=== PATIENT | male | born 1965 | race Caucasian/White ===

== ENCOUNTER 2022-04-10 01:46 | Outpatient (CLI) | payer BC, SELFPAY ==
[2022-04-08 08:47] VITALS: BMI 30.2
--- NOTE | 2022-04-08 09:26 | PC.NURSE ---
Pre Radiology instructions Report to the Outpatient Waiting Room, entrance under the green pavilion located off [facility], at time 0900 on date 04/10/22. Procedure Time: 1100. YOU MAY BE MONITORED AT HOSPITAL FOR UP TO 4 HOURS AFTER YOUR PROCEDURE. One visitor will be allowed to accompany the patient into the hospital. The visitor will be instructed to remain with patient at all times or leave the building due to restrictions. We will allow the visitor to come back to the postoperative area when patient is ready. NO children visitors allowed at this time. You and your visitor will be asked to self-screen and do not enter if you have any COVID symptoms. A mask is required within the hospital. Patients are to have no food or drink 6 hours prior to procedure time Driving will be restricted after the procedure, you must have a person to drive you home. Labs will be drawn in preop area and once reviewed, you will be taken to radiology area for procedure. When the procedure is completed, you will be taken to outpatient where you will be monitored for several hours. You may have one visitor in this area. Other than holding anti-coagulants, patient may take other medication(s) as scheduled. Prior to your appointment date patients are instructed to hold anti-coagulants after discussing with ordering provider to stop. If unable to discontinue anti-coagulants please notify radiologist. No aspirin or warfarin (Coumadin) for 7 days prior to the procedure. No clopidogrel (Plavix), ticagrelor (Brilinta), prasugrel (Effient) or dabigatran (Pradaxa) for 5 days prior to the procedure. No rivaroxaban (Xarelto), apixaban (Eliquis), dipyridamole (Aggrenox or Persantine) or cilostazol (Pletal) for 2 days prior to the procedure. Medications to discontinue per physician: NONE Date to take last dose: N/A Please leave all valuables, including medications, at home the day of procedure. The hospital will not accept responsibility for valuables. Wear comfortable, loose fitting clothing. Follow any additional instructions given to you from ordering provider. Telephone instructions given to PT Marcelo VELASQUEZ and asked if any additional questions and then verbalized understanding. Patient advised to call scheduling provider office or registration scheduling [phone] if any additional questions.
[2022-04-10] VITALS (10 sets, daily range): BP systolic 120–147; BP diastolic 72–89; PULSE 47–52; RESP 14–16; TEMP 36.5; O2SAT 97–100; BMI 29.6
--- NOTE | ~2022-04-10 | XR_ITS ---
EXAMINATION: XR chest 1V DATE: 04/10/2022 12:32 INDICATION: Status post right lung percutaneous biopsy TECHNIQUE: frontal view of the chest was obtained. COMPARISON: None FINDINGS: Very small right apical pneumothorax. Lungs are clear with no focal airspace opacities, pulmonary robert ma or pleural effusion. The cardiomediastinal silhouette is normal. Mild to moderate degenerative ske letal changes in the spine and at both shoulders. IMPRESSION: 1. Very small right apical pneumothorax. Reviewed, dictated and finalized at location A.
--- NOTE | ~2022-04-10 | XR_ITS ---
EXAMINATION: XR chest 1V portable DATE: 04/10/2022 13:32 INDICATION: One hour post percutaneous right lung biopsy TECHNIQUE: frontal view of the chest was obtained. COMPARISON: Chest radiograph dated 04/10/2022 at 12:29 PM FINDINGS: The previously seen tiny right pneumothorax has resolved. Lungs are now clear with no focal airspace opacity, pulmonary edema, pleural effusion or pneumothorax. The cardiomediastinal silhouette is christine l. IMPRESSION: 1. Resolution of prior tiny iatrogenic right pneumothorax post right lung percutaneous biopsy. Reviewed, dictated and finalized at location A. IMPRESSION: 1. Resolution of prior tiny iatrogenic right pneumothorax post right lung percu taneous biopsy.
--- NOTE | ~2022-04-10 | CT_ITS ---
EXAMINATION: CT biopsy lung w/imaging DATE: 04/10/2022 12:44 INDICATION: Solitary right lower lobe pulmonary nodule. TECHNIQUE: The procedure including the risks and benefits was discussed with the patient. Risks discu ssed included infection, approximately 1/20 risk of symptomatic hemorrhage beyond mild hemoptysis, ap proximately 1/3 risk of pneumothorax, and approximately 1/10 risk of pneumothorax severe enough to wa rrant chest tube placement. The patient understood the risks and agreed to proceed. The patient was p laced prone. The skin overlying the posterior inferior right hemithorax was prepped and draped in st erile fashion. Anesthetic was administered with 1% lidocaine subcutaneously. A 19 gauge outer needl e was advanced under CT guidance to the lesion of interest. A 20 gauge core biopsy needle was then us ed to obtain 3 core biopsy specimens. The needle was removed and the entry site was cleaned and dress ed. There were no immediate complications. The dose-length product was 429.64 mGy-cm. FINDINGS: CT images demonstrate the outer needle tip adjacent to a 13 mm nodule at the azygos esophag eal recess of the right lower lobe. IMPRESSION: 1. Successful CT-guided biopsy of a 1.3 cm right lower lobe nodule. Reviewed, dictated and finalized at location A.
--- NOTE | ~2022-04-10 | XR_ITS ---
EXAMINATION: XR chest 1V portable DATE: 04/10/2022 15:27 INDICATION: 3 hours post percutaneous right lung biopsy TECHNIQUE: frontal view of the chest was obtained. COMPARISON: Chest radiograph from earlier on 04/10/2022 FINDINGS: Minimal atelectasis/scarring at the left costophrenic angle. No other airspace opacities, pulmonary e arlene, pleural effusion or pneumothorax. The cardiomediastinal silhouette is normal. IMPRESSION: 1. Mild lingular atelectasis/scarring at the left costophrenic angle. No pneumothorax or other acute cardiopulmonary disease. Reviewed, dictated and finalized at location A. IMPRESSION: 1. Mild lingular atelectasis/scarring at the left costophrenic angle. No pneumo thorax or other acute cardiopulmonary disease.
[2022-04-10 09:42] LABS: Mean Platelet Volume 11.5 fl (7.4-10.4); Platelet Count Result 145 k/mm3 (150-375)
[2022-04-10 09:59] LABS: Prothrombin Time 13.1 Seconds (11.1-14.7)
--- NOTE | 2022-04-10 15:56 | SUR.PHASEII ---
pt is ok to be discharged now per dr mcgraw
== END 2022-04-10 16:00 | disposition home or self-care (01) ==
PROVIDERS: PCP Internal Medicine; Referring Provider Internal Medicine Pulmonary Disease; Visit Provider Radiology Diagnostic Radiology
PROC: BB24ZZZ Computerized Tomography (CT Scan) of Bilateral Lungs (ICD-10-PCS; CPT 32408; principal; 2022-04-10 11:00)
DX: R91.1 Solitary pulmonary nodule (principal); R91.8 Other nonspecific abnormal finding of lung field
CPT/HCPCS: 32408; 36415; 71045; 85049; 85610; 88305; 88312

== ENCOUNTER 2025-05-20 07:02 | Outpatient (CLI) | payer BC, SELFPAY ==
--- OUTSIDE RECORDS SUMMARY | 2025-05-20 07:05 | XMS_ITS | Data Portability ---
Author Organization [place] - [facility] [employer], Main Office Address [address] [place] [address] Care Team Providers Care Security Chief Museum Name Role Phone VAUGHN LINDSAY Primary Care Provider VAUGHN LINDSAY Referring Provider Assessment Encounter Date Assessment Date Assessment LastModified by Organization Details LastModified Time 02/10/2023 02/10/2023 12/10/2021: A1C 6.0 PSA 0.87 TSH: WNL, FT4: 0.96 CMP Gluc 122 LIPIDS: TG 181 CBC: WNL 06/28/2022: A1C 6.0 [email or web address] Not available 02/10/2023 11:39:31 Plan of Treatment Reminders Order Date Submit Date Provider Last Modified By Organization Details Last Modified Time Details Appointments None recorded. Lab PSA, serum or plasma 2022 023 [email or web address] Not available 3 15:36:11 vitamin D, 25-hydroxy, total, serum 2022 023 [email or web address] Not available 3 15:35:53 lipid panel, serum 2022 023 ZION Not available 3 12:54:51 CMP, serum or plasma 2022 023 ZION Not available 3 12:55:02 CBC w/ auto diff 2022 023 ZION Not available 3 12:33:13 TSH, serum or plasma 2022 023 ZION Not available 3 13:21:07 T4, free, serum 2022 023 ZION Not available 3 13:12:[address] referral 2022 023 [email or web address] Yousuf Covarrubias MD, [address] [place], [address], 3 10:32:32 Procedures None recorded. Surgeries biopsy, lung, CT guided (SURG) 2022 022 MIGRATION .[id number] [address] [place] [address] (Imaging), [address] [place] [address] [address], [place], [address], 3 22:44:16 Imaging None recorded. Medication Orders None recorded. Patient TargetsNo targets recorded. Patient InstructionsNo instructions recorded. 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 0 Diabe susana Scree rl Crite carson: <5.7% Consi stent with absen ce of diabe susana 5.7-6 .4% Consi stent with incre ased risk for diabe susana (pred iabet es) >OR=6 .5% Consi stent with diabe susana REFER ENCE: Diabe susana Care 2016, 39(Saleh ppl.1 ):s13 -s22 Not Available [facility] (Lab) [address] [place], [address], 12/10/2021 21:32:25 12/11/19 22 12/10/2021 PSA SCREE N PSA medicare screen 0.87 NG/mL 0.00-4 .00 Not Available [facility] (Lab) [address] [place], [address], 12/10/2021 13:42:14 12/11/19 22 12/10/2021 TSH thyroid-stim ulating hormone 1.820 uIU/m L 0.465- 4.680 Not Available [facility] (Lab) [address] [place], [address], 12/10/2021 13:42:12 12/11/19 22 12/10/2021 VITAM IN D 25-HY DROXY [id number] 32.4 NG/mL 30-100 Vitam in D Statu s: Defic ient: <20 ng/mL Insuf ficie nt: 20-29 ng/mL Suffi cient : 30-10 0 ng/mL Not Available [facility] (Lab) [address] [place], [address], 12/10/2021 13:19:46 12/11/19 22 12/10/2021 T4 FREE free T4 0.96 NG/dL 0.78-2 .19 Not Available [facility] (Lab) [address] [place], [address], 12/10/2021 13:19:05 12/11/19 22 12/10/2021 COMPR EHENS SHIVAM METAB OLIC PANEL sodium 138 mmol/ L 137-14 5 Not Available [facility] (Lab) [address] [place], [address], 12/10/2021 13:04:12 12/11/19 22 12/10/2021 COMPR EHENS SHIVAM METAB OLIC PANEL potassium 4.8 mmol/ L 3.5-5. 1 Not Available [facility] (Lab) [address] [place], [address], 12/10/2021 13:04:12 12/11/19 22 12/10/2021 COMPR EHENS SHIVAM METAB OLIC PANEL chloride 103 mmol/ L 98-107 Not Available [facility] (Lab) [address] [place], [address], 12/10/2021 13:04:12 12/11/19 22 12/10/2021 COMPR EHENS SHIVAM METAB OLIC PANEL carbon dioxide 29 mmol/ L 22-30 Not Available [facility] (Lab) [address] [place], [address], 12/10/2021 13:04:12 12/11/19 22 12/10/2021 COMPR EHENS SHIVAM METAB OLIC PANEL anion gap 10.8 mmol/ L 14-22 low Not Available [facility] (Lab) [address] [place], [address], 12/10/2021 13:04:12 12/11/19 22 12/10/2021 COMPR EHENS SHIVAM METAB OLIC PANEL glucose 122 mg/dL 70-99 high Not Available [facility] (Lab) [address] [place], [address], 12/10/2021 13:04:12 12/11/19 22 12/10/2021 COMPR EHENS SHIVAM METAB OLIC PANEL BUN 13 mg/dL 8-19 Not Available [facility] (Lab) [address] [place], [address], 12/10/2021 13:04:12 12/11/19 22 12/10/2021 COMPR EHENS SHIVAM METAB OLIC PANEL creatinine 0.94 mg/dL 0.66-1 .25 Not Available [facility] (Lab) [address] [place], [address], 12/10/2021 13:04:12 12/11/19 22 12/10/2021 COMPR EHENS SHIVAM METAB OLIC PANEL GFR >60 Refer ence Range : [place] ge GFR Healt hy Adult : >60 mL/mi n/1.7 3 m2 Chron ic Kidne y Disea se: 15-60 mL/mi n/1.7 3 m2 Kidne y Failu re: <15/m L/min /1.73 m2 www.n iddk. nih.g ov The MDRD study equat ion has not been valid ated in child myriam <18 years of age; pregn ant women ; the elder ly >85 years of age; or in some racia l or ethni c subgr oups, such as Hispa nics. Outsi de the valid ated yaniv eters , estim ated GFR is less accur ate, requi ring clini memo judgm ent on a case- by-ca se basis . Clini memo inter preta tion for other races and ages must be made by the clini jimmy. The MDRD study equat ion has not been valid ated for the evalu ation of serum creat inine relat ed to nutri benson l statu s or medic ation usage . For perso ns <18 years of age, a pedia tric GFR calcu lator is avail able on the [facility] websi te: https ://gay [place].kristyn white.o ena/pr ofess ional s/kdo qi/gf r_cal culat or Not Available [facility] (Lab) [address] [place], [address], 12/10/2021 13:04:12 12/11/19 22 12/10/2021 COMPR EHENS SHIVAM METAB OLIC PANEL alkaline phosphatase 69 U/L 38-126 Not Available [facility] (Lab) [address] [place], [address], 12/10/2021 13:04:12 12/11/19 22 12/10/2021 COMPR EHENS SHIVAM METAB OLIC PANEL alanine aminotransfe rase 37 U/L 0-50 Not Available [facility] (Lab) [address] [place], [address], 12/10/2021 13:04:12 12/11/19 22 12/10/2021 COMPR EHENS SHIVAM METAB OLIC PANEL aspartate aminotransfe rase 30 U/L 15-46 Not Available [facility] (Lab) [address] [place], [address], 12/10/2021 13:04:12 12/11/19 22 12/10/2021 COMPR EHENS SHIVAM METAB OLIC PANEL bilirubin, total 0.80 mg/dL 0.20-1 .30 Not Available [facility] (Lab) [address] [place], [address], 12/10/2021 13:04:12 12/11/19 22 12/10/2021 COMPR EHENS SHIVAM METAB OLIC PANEL calcium 9.4 mg/dL 8.4-10 .2 Not Available [facility] (Lab) [address] [place], [address], 12/10/2021 13:04:12 12/11/19 22 12/10/2021 COMPR EHENS SHIVAM METAB OLIC PANEL total protein 7.0 g/dL 6.3-8. 2 Not Available [facility] (Lab) [address] [place], [address], 12/10/2021 13:04:12 12/11/19 22 12/10/2021 COMPR EHENS SHIVAM METAB OLIC PANEL albumin 4.2 g/dL 3.4-5. 0 Not Available [facility] (Lab) [address] [place], [address], 12/10/2021 13:04:12 12/11/19 22 12/10/2021 COMPR EHENS SHIVAM METAB OLIC PANEL globulin 2.8 g/dL 2.6-4. 2 Not Available [facility] (Lab) [address] [place], [address], 12/10/2021 13:04:12 12/11/19 22 12/10/2021 COMPR EHENS SHIVAM METAB OLIC PANEL A/G ratio 1.5 ratio 1.0-2. 0 Not Available [facility] (Lab) [address] [place], [address], 12/10/2021 13:04:12 12/11/19 22 12/10/2021 LIPID PANEL cholesterol 120 mg/dL 140-19 9 low NIH SCOTT NSUS RECOM MENDA TION FOR SARAH STERO L: ADULT CHILD LOW RISK: <200 <170 BORDE RLINE : <200- 239 ----- HIGH RISK: >240 >200 Not Available [facility] (Lab) [address] [place], [address], 12/10/2021 13:03:39 12/11/19 22 12/10/2021 LIPID PANEL triglyceride s 181 mg/dL 0-150 high NIH SCOTT NSUS REPOR T RECOM MENDA TION FOR TRIGL YCERI CHET: ADULT CHILD LOW RISK: <150 ----- BODER LINE: 150-1 99 ----- HIGH RISK: >200 ----- Not Available [facility] (Lab) [address] [place], [address], 12/10/2021 13:03:39 12/11/19 22 12/10/2021 LIPID PANEL HDL cholesterol 43 mg/dL 40- Not Available [facility] (Lab) [address] [place], [address], 12/10/2021 13:03:39 12/11/19 22 12/10/2021 LIPID PANEL LDL cholesterol, calculated 41 mg/dL 0-130 NIH SCOTT NSUS REPOR T RECOM MENDA TIONS FOR LDL: ADULT CHILD LOW RISK <130 <110 (OPTI MAL LDL) <100 ----- BORDE RLINE : 130-1 59 ----- HIGH RISK: >160 >130 A TRIGL YCERI DE RESUL T >400 INVAL IDATE S THE CALCU LATIO N FOR LDL FRACT IONAT ION - THE LDL RESUL T WILL NOT BE REPOR MELISSA. Not Available [facility] (Lab) [address] [place], [address], 12/10/2021 13:03:39 12/11/19 22 12/10/2021 CBC/C OMPLE TE BLD COUNT W/DIF F white blood cells 6.3 x10'3 /uL 4.2-10 .8 Not Available [facility] (Lab) [address] [place], [address], 12/10/2021 13:02:33 12/11/19 22 12/10/2021 CBC/C OMPLE TE BLD COUNT W/DIF F red blood cells 4.71 x10'6 /uL 4.10-5 .80 Not Available [facility] (Lab) [address] [place], [address], 12/10/2021 13:02:33 12/11/19 22 12/10/2021 CBC/C OMPLE TE BLD COUNT W/DIF F hemoglobin 14.4 g/dL 13.2-1 7.0 Not Available [facility] (Lab) [address] [place], [address], 12/10/2021 13:02:33 12/11/19 22 12/10/2021 CBC/C OMPLE TE BLD COUNT W/DIF F hematocrit 43.6 % 39.3-5 0.0 Not Available [facility] (Lab) [address] [place], [address], 12/10/2021 13:02:33 12/11/19 22 12/10/2021 CBC/C OMPLE TE BLD COUNT W/DIF F mean red cell volume 92.6 fL 80.0-9 7.0 Not Available [facility] (Lab) [address] [place], [address], 12/10/2021 13:02:33 12/11/19 22 12/10/2021 CBC/C OMPLE TE BLD COUNT W/DIF F mean red cell hemoglobin 30.6 pg 27.0-3 3.0 Not Available [facility] (Lab) [address] [place], [address], 12/10/2021 13:02:33 12/11/19 22 12/10/2021 CBC/C OMPLE TE BLD COUNT W/DIF F mean RBC HGB concentratio n 33.0 g/dL 31.0-3 6.0 Not Available [facility] (Lab) [address] [place], [address], 12/10/2021 13:02:33 12/11/19 22 12/10/2021 CBC/C OMPLE TE BLD COUNT W/DIF F red cell distribution width 12.1 % 11.8-1 5.5 Not Available [facility] (Lab) [address] [place], [address], 12/10/2021 13:02:33 12/11/19 22 12/10/2021 CBC/C OMPLE TE BLD COUNT W/DIF F platelets 176 x10'3 /uL 150-40 0 Not Available [facility] (Lab) [address] [place], [address], 12/10/2021 13:02:33 12/11/19 22 12/10/2021 CBC/C OMPLE TE BLD COUNT W/DIF F mean platelet volume 11.4 fL 9.0-12 .4 Not Available [facility] (Lab) [address] [place], [address], 12/10/2021 13:02:33 12/11/19 22 12/10/2021 CBC/C OMPLE TE BLD COUNT W/DIF F neutrophils 44.6 % 39.0-7 2.0 Not Available [facility] (Lab) [address] [place], [address], 12/10/2021 13:02:33 12/11/19 22 12/10/2021 CBC/C OMPLE TE BLD COUNT W/DIF F lymphocytes 44.1 % 16.0-4 7.0 Not Available [facility] (Lab) [address] [place], [address], 12/10/2021 13:02:33 12/11/19 22 12/10/2021 CBC/C OMPLE TE BLD COUNT W/DIF F monocytes 8.0 % 5.0-12 .0 Not Available [facility] (Lab) [address] [place], [address], 12/10/2021 13:02:33 12/11/19 22 12/10/2021 CBC/C OMPLE TE BLD COUNT W/DIF F eosinophils 2.1 % 1.0-7. 0 Not Available [facility] (Lab) [address] [place], [address], 12/10/2021 13:02:33 12/11/19 22 12/10/2021 CBC/C OMPLE TE BLD COUNT W/DIF F basophils 1.0 % 0.0-2. 0 Not Available [facility] (Lab) [address] [place], [address], 12/10/2021 13:02:33 12/11/19 22 12/10/2021 CBC/C OMPLE TE BLD COUNT W/DIF F monocytes, absolute count 0.50 x10'3 /uL 0.29-0 .99 Not Available [facility] (Lab) [address] [place], [address], 12/10/2021 13:02:33 12/11/19 22 12/10/2021 CBC/C OMPLE TE BLD COUNT W/DIF F immature granulocytes 0.2 % 0.00-0 .50 Not Available [facility] (Lab) [address] [place], [address], 12/10/2021 13:02:33 12/11/19 22 12/10/2021 CBC/C OMPLE TE BLD COUNT W/DIF F neutrophils, absolute count 2.80 x10'3 /uL 1.5-8. 0 Not Available [facility] (Lab) [address] [place], [address], 12/10/2021 13:02:33 12/11/19 22 12/10/2021 CBC/C OMPLE TE BLD COUNT W/DIF F lymphocytes, absolute count 2.76 x10'3 /uL 1.07-3 .43 Not Available [facility] (Lab) [address] [place], [address], 12/10/2021 13:02:33 12/11/19 22 12/10/2021 CBC/C OMPLE TE BLD COUNT W/DIF F eosinophils, absolute count 0.13 x10'3 /uL 0.02-0 .53 Not Available [facility] (Lab) [address] [place], [address], 12/10/2021 13:02:33 12/11/19 22 12/10/2021 CBC/C OMPLE TE BLD COUNT W/DIF F basophils, absolute count 0.06 x10'3 /uL 0.01-0 .08 Not Available [facility] (Lab) [address] [place], [address], 12/10/2021 13:02:33 12/11/19 22 12/10/2021 CBC/C OMPLE TE BLD COUNT W/DIF F immature granulocytes ,absolute 0.01 x10'3 /uL 0.00-0 .05 Not Available [facility] (Lab) [address] [place], [address], 12/10/2021 13:02:33 12/11/19 22 12/10/2021 CBC/C OMPLE TE BLD COUNT W/DIF F nucleated red blood cells 0.0 % -0 Not Available [facility] (Lab) [address] [place], [address], 12/10/2021 13:02:33 12/11/19 22 12/10/2021 CBC/C OMPLE TE BLD COUNT W/DIF F NRBC# 0.00 x10'3 /uL Not Available [facility] (Lab) [address] [place], [address], 12/10/2021 13:02:33 06/28/20 22 07/05/2022 HEMOG LOBIN A1C HA1C 6.0 % 4.0-6. 0 Diabe susana Scree rl Crite carson: <5.7% Consi stent with absen ce of diabe susana 5.7-6 .4% Consi stent with incre ased risk for diabe susana (pred iabet es) >OR=6 .5% Consi stent with diabe susana REFER ENCE: Diabe susana Care 2016, 39(Saleh ppl.1 ):s13 -s22 Not Available [facility] (Lab) [address] [place], [address], 07/05/2022 11:19:58 06/28/20 22 06/28/2022 CBC/C OMPLE TE BLD COUNT W/DIF F white blood cells 6.9 x10'3 /uL 4.2-10 .8 Not Available [facility] (Lab) [address] [place], [address], 06/28/2022 11:21:05 06/28/20 22 06/28/2022 CBC/C OMPLE TE BLD COUNT W/DIF F red blood cells 4.95 x10'6 /uL 4.10-5 .80 Not Available [facility] (Lab) [address] [place], [address], 06/28/2022 11:21:05 06/28/20 22 06/28/2022 CBC/C OMPLE TE BLD COUNT W/DIF F hemoglobin 15.1 g/dL 13.2-1 7.0 Not Available [facility] (Lab) [address] [place], [address], 06/28/2022 11:21:05 06/28/20 22 06/28/2022 CBC/C OMPLE TE BLD COUNT W/DIF F hematocrit 45.8 % 39.3-5 0.0 Not Available [facility] (Lab) [address] [place], [address], 06/28/2022 11:21:05 06/28/20 22 06/28/2022 CBC/C OMPLE TE BLD COUNT W/DIF F mean red cell volume 92.5 fL 80.0-9 7.0 Not Available [facility] (Lab) [address] [place], [address], 06/28/2022 11:21:05 06/28/20 22 06/28/2022 CBC/C OMPLE TE BLD COUNT W/DIF F mean red cell hemoglobin 30.5 pg 27.0-3 3.0 Not Available [facility] (Lab) [address] [place], [address], 06/28/2022 11:21:05 06/28/20 22 06/28/2022 CBC/C OMPLE TE BLD COUNT W/DIF F mean RBC HGB concentratio n 33.0 g/dL 31.0-3 6.0 Not Available [facility] (Lab) [address] [place], [address], 06/28/2022 11:21:05 06/28/20 22 06/28/2022 CBC/C OMPLE TE BLD COUNT W/DIF F red cell distribution width 12.1 % 11.8-1 5.5 Not Available [facility] (Lab) [address] [place], [address], 06/28/2022 11:21:05 06/28/20 22 06/28/2022 CBC/C OMPLE TE BLD COUNT W/DIF F platelets 185 x10'3 /uL 150-40 0 Not Available [facility] (Lab) [address] [place], [address], 06/28/2022 11:21:05 06/28/20 22 06/28/2022 CBC/C OMPLE TE BLD COUNT W/DIF F mean platelet volume 10.8 fL 9.0-12 .4 Not Available [facility] (Lab) [address] [place], [address], 06/28/2022 11:21:05 06/28/20 22 06/28/2022 CBC/C OMPLE TE BLD COUNT W/DIF F neutrophils 53.2 % 39.0-7 2.0 Not Available [facility] (Lab) [address] [place], [address], 06/28/2022 11:21:05 06/28/20 22 06/28/2022 CBC/C OMPLE TE BLD COUNT W/DIF F lymphocytes 36.6 % 16.0-4 7.0 Not Available [facility] (Lab) [address] [place], [address], 06/28/2022 11:21:05 06/28/20 22 06/28/2022 CBC/C OMPLE TE BLD COUNT W/DIF F monocytes 8.0 % 5.0-12 .0 Not Available [facility] (Lab) [address] [place], [address], 06/28/2022 11:21:05 06/28/20 22 06/28/2022 CBC/C OMPLE TE BLD COUNT W/DIF F eosinophils 1.2 % 1.0-7. 0 Not Available [facility] (Lab) [address] [place], [address], 06/28/2022 11:21:05 06/28/20 22 06/28/2022 CBC/C OMPLE TE BLD COUNT W/DIF F monocytes, absolute count 0.55 x10'3 /uL 0.29-0 .99 Not Available [facility] (Lab) [address] [place], [address], 06/28/2022 11:21:05 06/28/20 22 06/28/2022 CBC/C OMPLE TE BLD COUNT W/DIF F basophils 0.7 % 0.0-2. 0 Not Available [facility] (Lab) [address] [place], [address], 06/28/2022 11:21:05 06/28/20 22 06/28/2022 CBC/C OMPLE TE BLD COUNT W/DIF F immature granulocytes 0.3 % 0.00-0 .50 Not Available [facility] (Lab) [address] [place], [address], 06/28/2022 11:21:05 06/28/20 22 06/28/2022 CBC/C OMPLE TE BLD COUNT W/DIF F neutrophils, absolute count 3.68 x10'3 /uL 1.5-8. 0 Not Available [facility] (Lab) [address] [place], [address], 06/28/2022 11:21:05 06/28/20 22 06/28/2022 CBC/C OMPLE TE BLD COUNT W/DIF F lymphocytes, absolute count 2.53 x10'3 /uL 1.07-3 .43 Not Available [facility] (Lab) [address] [place], [address], 06/28/2022 11:21:05 06/28/20 22 06/28/2022 CBC/C OMPLE TE BLD COUNT W/DIF F eosinophils, absolute count 0.08 x10'3 /uL 0.02-0 .53 Not Available [facility] (Lab) [address] [place], [address], 06/28/2022 11:21:05 06/28/20 22 06/28/2022 CBC/C OMPLE TE BLD COUNT W/DIF F basophils, absolute count 0.05 x10'3 /uL 0.01-0 .08 Not Available [facility] (Lab) [address] [place], [address], 06/28/2022 11:21:05 06/28/20 22 06/28/2022 CBC/C OMPLE TE BLD COUNT W/DIF F immature granulocytes ,absolute 0.02 x10'3 /uL 0.00-0 .05 Not Available [facility] (Lab) [address] [place], [address], 06/28/2022 11:21:05 06/28/20 22 06/28/2022 CBC/C OMPLE TE BLD COUNT W/DIF F nucleated red blood cells 0.0 % -0 Not Available [facility] (Lab) [address] [place], [address], 06/28/2022 11:21:05 06/28/20 22 06/28/2022 CBC/C OMPLE TE BLD COUNT W/DIF F NRBC# 0.00 x10'3 /uL Not Available [facility] (Lab) [address] [place], [address], 06/28/2022 11:21:05 06/28/20 22 06/28/2022 TSH thyroid-stim ulating hormone 3.010 uIU/m L 0.465- 4.680 Not Available [facility] (Lab) [address] [place], [address], 06/28/2022 11:20:10 06/28/20 22 06/28/2022 T4 FREE free T4 0.92 NG/dL 0.78-2 .19 Not Available [facility] (Lab) [address] [place], [address], 06/28/2022 11:06:23 06/28/20 22 06/28/2022 VITAM IN D 25-HY DROXY vd25oh 26.1 NG/mL 30-100 low Vitam in D Statu s: Defic ient: <20 ng/mL Insuf ficie nt: 20-29 ng/mL Suffi cient : 30-10 0 ng/mL Not Available [facility] (Lab) [address] [place], [address], 06/28/2022 11:06:00 06/28/20 22 06/28/2022 COMPR EHENS SHIVAM METAB OLIC PANEL sodium 140 mmol/ L 137-14 5 Not Available [facility] (Lab) [address] [place], [address], 06/28/2022 10:54:37 06/28/20 22 06/28/2022 COMPR EHENS SHIVAM METAB OLIC PANEL potassium 4.9 mmol/ L 3.5-5. 1 Not Available [facility] (Lab) [address] [place], [address], 06/28/2022 10:54:37 06/28/20 22 06/28/2022 COMPR EHENS SHIVAM METAB OLIC PANEL chloride 104 mmol/ L 98-107 Not Available [facility] (Lab) [address] [place], [address], 06/28/2022 10:54:37 06/28/20 22 06/28/2022 COMPR EHENS SHIVAM METAB OLIC PANEL carbon dioxide 28 mmol/ L 22-30 Not Available [facility] (Lab) [address] [place], [address], 06/28/2022 10:54:37 06/28/20 22 06/28/2022 COMPR EHENS SHIVAM METAB OLIC PANEL anion gap 12.9 mmol/ L 14-22 low Not Available [facility] (Lab) [address] [place], [address], 06/28/2022 10:54:37 06/28/20 22 06/28/2022 COMPR EHENS SHIVAM METAB OLIC PANEL glucose 128 mg/dL 70-99 high Not Available [facility] (Lab) [address] [place], [address], 06/28/2022 10:54:37 06/28/20 22 06/28/2022 COMPR EHENS SHIVAM METAB OLIC PANEL BUN 16 mg/dL 8-19 Not Available [facility] (Lab) [address] [place], [address], 06/28/2022 10:54:37 06/28/20 22 06/28/2022 COMPR EHENS SHIVAM METAB OLIC PANEL creatinine 0.98 mg/dL 0.66-1 .25 Not Available [facility] (Lab) [address] [place], [address], 06/28/2022 10:54:37 06/28/20 22 06/28/2022 COMPR EHENS SHIVAM METAB OLIC PANEL GFR >60 Refer ence Range : [place] GFR Healt hy Adult : >60 mL/mi n/1.7 3 m2 Chron ic Kidne y Disea se: 15-60 mL/mi n/1.7 3 m2 Kidne y Failu re: <15/m L/min /1.73 m2 www.n iddk. nih.g ov The MDRD study equat ion has not been valid ated in child myriam <18 years of age; pregn ant women ; the elder ly >85 years of age; or in some racia l or ethni c subgr oups, such as [facility] nics. Outsi de the valid ated yaniv eters , estim ated GFR is less accur ate, requi ring clini memo judgm ent on a case- by-ca se basis . Clini memo inter preta tion for other races and ages must be made by the clini jimmy. The MDRD study equat ion has not been valid ated for the evalu ation of serum creat inine relat ed to nutri benson l statu s or medic ation usage . For perso ns <18 years of age, a pedia tric GFR calcu lator is avail able on the NK[facility] websi te: [email or web address] :[email or web address] [email or web address] rg/pr ofess ional s/kdo qi/gf r_cal culat or Not Available [facility] (Lab) [address] [place], [address], 06/28/2022 10:54:37 06/28/20 22 06/28/2022 COMPR EHENS SHIVAM METAB OLIC PANEL alkaline phosphatase 69 U/L 38-126 Not Available [facility] (Lab) [address] [facility] [place], [address], 06/28/2022 10:54:37 06/28/20 22 06/28/2022 COMPR EHENS SHIVAM METAB OLIC PANEL alanine aminotransfe rase 57 U/L 0-50 high Not Available [facility] (Lab) [address] [facility] [place], [address], 06/28/2022 10:54:37 06/28/20 22 06/28/2022 COMPR EHENS SHIVAM METAB OLIC PANEL aspartate aminotransfe rase 37 U/L 15-46 Not Available [facility] (Lab) [address] [facility] [place], [address], 06/28/2022 10:54:37 06/28/20 22 06/28/2022 COMPR EHENS SHIVAM METAB OLIC PANEL bilirubin, total 0.50 mg/dL 0.20-1 .30 Not Available [facility] (Lab) [address] [place], [address], 06/28/2022 10:54:37 06/28/20 22 06/28/2022 COMPR EHENS SHIVAM METAB OLIC PANEL calcium 9.1 mg/dL 8.4-10 .2 Not Available [facility] (Lab) [address] [place], [address], 06/28/2022 10:54:37 06/28/20 22 06/28/2022 COMPR EHENS SHIVAM METAB OLIC PANEL total protein 6.9 g/dL 6.3-8. 2 Not Available [facility] (Lab) [address] [place], [address], 06/28/2022 10:54:37 06/28/20 22 06/28/2022 COMPR EHENS SHIVAM METAB OLIC PANEL albumin 4.3 g/dL 3.4-5. 0 Not Available [facility] (Lab) [address] [place], [address], 06/28/2022 10:54:37 06/28/20 22 06/28/2022 COMPR EHENS SHIVAM METAB OLIC PANEL globulin 2.6 g/dL 2.6-4. 2 Not Available [facility] (Lab) [address] [place], [address], 06/28/2022 10:54:37 06/28/20 22 06/28/2022 COMPR EHENS SHIVAM METAB OLIC PANEL A/G ratio 1.7 ratio 1.0-2. 0 Not Available [facility] (Lab) [address] [place], [address], 06/28/2022 10:54:37 06/28/20 22 06/28/2022 LIPID PANEL LDL cholesterol, calculated 76 mg/dL 0-130 [facility] NSUS REPOR T RECOM MENDA TIONS FOR LDL: ADULT CHILD LOW RISK <130 <110 (OPTI MAL LDL) <100 ----- BORDE RLINE : 130-1 59 ----- HIGH RISK: >160 >130 A TRIGL YCERI DE RESUL T >400 INVAL IDATE S THE CALCU LATIO N FOR LDL FRACT IONAT ION - THE LDL RESUL T WILL NOT BE REPOR MELISSA. Not Available [facility] (Lab) [address] [place], [address], 06/28/2022 10:54:21 06/28/20 22 06/28/2022 LIPID PANEL cholesterol 141 mg/dL 140-19 9 NIH SCOTT NSUS RECOM MENDA TION FOR SARAH STERO L: ADULT CHILD LOW RISK: <200 <170 BORDE RLINE : <200- 239 ----- HIGH RISK: >240 >200 Not Available [facility] (Lab) [address] [place], [address], 06/28/2022 10:54:21 06/28/20 22 06/28/2022 LIPID PANEL triglyceride s 141 mg/dL 0-150 NIH SCOTT NSUS REPOR T RECOM MENDA TION FOR TRIGL YCERI CHET: ADULT CHILD LOW RISK: <150 ----- BODER LINE: 150-1 99 ----- HIGH RISK: >200 ----- Not Available [facility] (Lab) [address] [place], [address], 06/28/2022 10:54:21 06/28/20 22 06/28/2022 LIPID PANEL HDL cholesterol 37 mg/dL 40- low Not Available [facility] (Lab) [address] [place], [address], 06/28/2022 10:54:21 02/29/20 23 02/28/2023 CBC/C OMPLE TE BLD COUNT W/DIF F white blood cells 6.4 x10'3 /uL 4.2-10 .8 Not Available [facility] (Lab) [address] [place], [address], 02/28/2023 12:33:13 02/29/20 23 02/28/2023 CBC/C OMPLE TE BLD COUNT W/DIF F red blood cells 5.04 x10'6 /uL 4.10-5 .80 Not Available [facility] (Lab) [address] [place], [address], 02/28/2023 12:33:13 02/29/20 23 02/28/2023 CBC/C OMPLE TE BLD COUNT W/DIF F hemoglobin 15.3 g/dL 13.2-1 7.0 Not Available [facility] (Lab) [address] [place], [address], 02/28/2023 12:33:13 02/29/20 23 02/28/2023 CBC/C OMPLE TE BLD COUNT W/DIF F hematocrit 46.7 % 39.3-5 0.0 Not Available [facility] (Lab) [address] [place], [address], 02/28/2023 12:33:13 02/29/20 23 02/28/2023 CBC/C OMPLE TE BLD COUNT W/DIF F mean red cell volume 92.7 fL 80.0-9 7.0 Not Available [facility] (Lab) [address] [place], [address], 02/28/2023 12:33:13 02/29/20 23 02/28/2023 CBC/C OMPLE TE BLD COUNT W/DIF F mean red cell hemoglobin 30.4 pg 27.0-3 3.0 Not Available [facility] (Lab) [address] [place], [address], 02/28/2023 12:33:13 02/29/20 23 02/28/2023 CBC/C OMPLE TE BLD COUNT W/DIF F mean RBC HGB concentratio n 32.8 g/dL 31.0-3 6.0 Not Available [facility] (Lab) [address] [place], [address], 02/28/2023 12:33:13 02/29/20 23 02/28/2023 CBC/C OMPLE TE BLD COUNT W/DIF F red cell distribution width 12.0 % 11.8-1 5.5 Not Available [facility] (Lab) [address] [place], [address], 02/28/2023 12:33:13 02/29/20 23 02/28/2023 CBC/C OMPLE TE BLD COUNT W/DIF F platelets 171 x10'3 /uL 150-40 0 Not Available [facility] (Lab) [address] [place], [address], 02/28/2023 12:33:13 02/29/20 23 02/28/2023 CBC/C OMPLE TE BLD COUNT W/DIF F mean platelet volume 11.2 fL 9.0-12 .4 Not Available [facility] (Lab) [address] [place], [address], 02/28/2023 12:33:13 02/29/20 23 02/28/2023 CBC/C OMPLE TE BLD COUNT W/DIF F neutrophils 51.7 % 39.0-7 2.0 Not Available [facility] (Lab) [address] [place], [address], 02/28/2023 12:33:13 02/29/20 23 02/28/2023 CBC/C OMPLE TE BLD COUNT W/DIF F lymphocytes 39.5 % 16.0-4 7.0 Not Available [facility] (Lab) [address] [place], [address], 02/28/2023 12:33:13 02/29/20 23 02/28/2023 CBC/C OMPLE TE BLD COUNT W/DIF F monocytes 6.4 % 5.0-12 .0 Not Available [facility] (Lab) [address] [place], [address], 02/28/2023 12:33:13 02/29/2002/28/2023 CBC/C OMPLE TE BLD COUNT W/DIF F eosinophils 1.4 % 1.0-7. 0 Not Available [facility] (Lab) [address] [place], [address], 02/28/2023 12:33:13 02/29/2002/28/2023 CBC/C OMPLE TE BLD COUNT W/DIF F basophils 0.8 % 0.0-2. 0 Not Available [facility] (Lab) [address] [place], [address], 02/28/2023 12:33:13 02/29/2002/28/2023 CBC/C OMPLE TE BLD COUNT W/DIF F immature granulocytes 0.2 % 0.00-0 .50 Not Available [facility] (Lab) [address] [place], [address], 02/28/2023 12:33:13 02/29/20 23 02/28/2023 CBC/C OMPLE TE BLD COUNT W/DIF F neutrophils, absolute count 3.32 x10'3 /uL 1.5-8. 0 Not Available [facility] (Lab) [address] [place], [address], 02/28/2023 12:33:13 02/29/20 23 02/28/2023 CBC/C OMPLE TE BLD COUNT W/DIF F lymphocytes, absolute count 2.53 x10'3 /uL 1.07-3 .43 Not Available [facility] (Lab) [address] [place], [address], 02/28/2023 12:33:13 02/29/20 23 02/28/2023 CBC/C OMPLE TE BLD COUNT W/DIF F monocytes, absolute count 0.41 x10'3 /uL 0.29-0 .99 Not Available [facility] (Lab) [address] [place], [address], 02/28/2023 12:33:13 02/29/20 23 02/28/2023 CBC/C OMPLE TE BLD COUNT W/DIF F eosinophils, absolute count 0.09 x10'3 /uL 0.02-0 .53 Not Available [facility] (Lab) [address] [place], [address], 02/28/2023 12:33:13 02/29/20 23 02/28/2023 CBC/C OMPLE TE BLD COUNT W/DIF F basophils, absolute count 0.05 x10'3 /uL 0.01-0 .08 Not Available [facility] (Lab) [address] [place], [address], 02/28/2023 12:33:13 02/29/20 23 02/28/2023 CBC/C OMPLE TE BLD COUNT W/DIF F immature granulocytes ,absolute 0.01 x10'3 /uL 0.00-0 .05 Not Available [facility] (Lab) [address] [place], [address], 02/28/2023 12:33:13 02/29/20 23 02/28/2023 CBC/C OMPLE TE BLD COUNT W/DIF F nucleated red blood cells 0.0 % -0 Not Available [facility] (Lab) [address] [place], [address], 02/28/2023 12:33:13 02/29/20 23 02/28/2023 CBC/C OMPLE TE BLD COUNT W/DIF F NRBC# 0.00 x10'3 /uL Not Available [facility] (Lab) [address] [place], [address], 02/28/2023 12:33:13 02/29/20 23 02/28/2023 LIPID PANEL cholesterol 193 mg/dL 140-19 9 [facility] SCOTT NSUS RECOM MENDA TION FOR SARAH STERO L: ADULT CHILD LOW RISK: <200 <170 BORDE RLINE : <200- 239 ----- HIGH RISK: >240 >200 Not Available [facility] (Lab) [address] [place], [address], 02/28/2023 12:54:51 02/29/2002/28/2023 LIPID PANEL triglyceride s 164 mg/dL 0-150 high NIH SCOTT NSUS REPOR T RECOM MENDA TION FOR TRIGL YCERI CHET: ADULT CHILD LOW RISK: <150 ----- BODER LINE: 150-1 99 ----- HIGH RISK: >200 ----- Not Available [facility] (Lab) [address] [place], [address], 02/28/2023 12:54:51 02/29/20 23 02/28/2023 LIPID PANEL HDL cholesterol 33 mg/dL 40- low Not Available [facility] (Lab) [address] [place], [address], 02/28/2023 12:54:51 02/29/2002/28/2023 LIPID PANEL LDL cholesterol, calculated 127 mg/dL 0-130 NIH SCOTT NSUS REPOR T RECOM MENDA TIONS FOR LDL: ADULT CHILD LOW RISK <130 <110 (OPTI MAL LDL) <100 ----- BORDE RLINE : 130-1 59 ----- HIGH RISK: >160 >130 A TRIGL YCERI DE RESUL T >400 INVAL IDATE S THE CALCU LATIO N FOR LDL FRACT IONAT ION - THE LDL RESUL T WILL NOT BE REPOR MELISSA. Not Available [facility] (Lab) [address] [place], [address], 02/28/2023 12:54:51 02/29/20 23 02/28/2023 COMPR EHENS SHIVAM METAB OLIC PANEL sodium 138 mmol/ L 137-14 5 Not Available [facility] (Lab) [address] [place], [address], 02/28/2023 12:55:02 02/29/20 23 02/28/2023 COMPR EHENS SHIVAM METAB OLIC PANEL potassium 5.0 mmol/ L 3.5-5. 1 Not Available [facility] (Lab) [address] [place], [address], 02/28/2023 12:55:02 02/29/20 23 02/28/2023 COMPR EHENS SHIVAM METAB OLIC PANEL chloride 102 mmol/ L 98-107 Not Available [facility] (Lab) [address] [place], [address], 02/28/2023 12:55:02 02/29/20 23 02/28/2023 COMPR EHENS SHIVAM METAB OLIC PANEL carbon dioxide 29 mmol/ L 22-30 Not Available [facility] (Lab) [address] [place], [address], 02/28/2023 12:55:02 02/29/20 23 02/28/2023 COMPR EHENS SHIVAM METAB OLIC PANEL anion gap 12.0 mmol/ L 14-22 low Not Available [facility] (Lab) [address] [place], [address], 02/28/2023 12:55:02 02/29/20 23 02/28/2023 COMPR EHENS SHIVAM METAB OLIC PANEL glucose 121 mg/dL 70-99 high Not Available [facility] (Lab) [address] [place], [address], 02/28/2023 12:55:02 02/29/20 23 02/28/2023 COMPR EHENS SHIVAM METAB OLIC PANEL BUN 14 mg/dL 8-19 Not Available [facility] (Lab) [address] [place], [address], 02/28/2023 12:55:02 02/29/20 23 02/28/2023 COMPR EHENS SHIVAM METAB OLIC PANEL creatinine 0.88 mg/dL 0.66-1 .25 Not Available [facility] (Lab) [address] [place], [address], 02/28/2023 12:55:02 02/29/20 23 02/28/2023 COMPR EHENS SHIVAM METAB OLIC PANEL GFR >60 Refer ence Range : [place] ge GFR Healt hy Adult : >60 mL/mi n/1.7 3 m2 Chron ic Kidne y Disea se: 15-60 mL/mi n/1.7 3 m2 Kidne y Failu re: <15/m L/min /1.73 m2 www.n iddk. nih.g ov The MDRD study equat ion has not been valid ated in child myriam <18 years of age; pregn ant women ; the elder ly >85 years of age; or in some racia l or ethni c subgr oups, such as Hispa nics. Outsi de the valid ated yaniv eters , estim ated GFR is less accur ate, requi ring clini memo judgm ent on a case- by-ca se basis . Clini memo inter preta tion for other races and ages must be made by the clini jimmy. The MDRD study equat ion has not been valid ated for the evalu ation of serum creat inine relat ed to nutri benson l statu s or medic ation usage . For perso ns <18 years of age, a pedia tric GFR calcu lator is avail able on the F websi te: https ://gay w.krsityn johnstony.o rg/pr ofess ional s/kdo qi/gf r_cal culat or Not Available [facility] (Lab) [address] [place], [address], 02/28/2023 12:55:02 02/29/2002/28/2023 COMPR EHENS SHIVAM METAB OLIC PANEL alkaline phosphatase 61 U/L 38-126 Not Available [facility] (Lab) [address] [place], [address], 02/28/2023 12:55:02 02/29/20 23 02/28/2023 COMPR EHENS SHIVAM METAB OLIC PANEL alanine aminotransfe rase 31 U/L 0-50 Not Available [facility] (Lab) [address] [place], [address], 02/28/2023 12:55:02 02/29/20 23 02/28/2023 COMPR EHENS SHIVAM METAB OLIC PANEL aspartate aminotransfe rase 28 U/L 15-46 Not Available [facility] (Lab) [address] [place], [address], 02/28/2023 12:55:02 02/29/2002/28/2023 COMPR EHENS SHIVAM METAB OLIC PANEL bilirubin, total 0.70 mg/dL 0.20-1 .30 Not Available [facility] (Lab) [address] [place], [address], 02/28/2023 12:55:02 02/29/20 23 02/28/2023 COMPR EHENS SHIVAM METAB OLIC PANEL calcium 9.0 mg/dL 8.4-10 .2 Not Available [facility] (Lab) [address] [place], [address], 02/28/2023 12:55:02 02/29/20 23 02/28/2023 COMPR EHENS SHIVAM METAB OLIC PANEL total protein 7.0 g/dL 6.3-8. 2 Not Available [facility] (Lab) [address] [place], [address], 02/28/2023 12:55:02 02/29/20 23 02/28/2023 COMPR EHENS SHIVAM METAB OLIC PANEL albumin 4.2 g/dL 3.4-5. 0 Not Available [facility] (Lab) [address] [place], [address], 02/28/2023 12:55:02 02/29/20 23 02/28/2023 COMPR EHENS SHIVAM METAB OLIC PANEL globulin 2.8 g/dL 2.6-4. 2 Not Available [facility] (Lab) [address] [place], [address], 02/28/2023 12:55:02 02/29/20 23 02/28/2023 COMPR EHENS SHIVAM METAB OLIC PANEL A/G ratio 1.5 ratio 1.0-2. 0 Not Available [facility] (Lab) [address] [place], [address], 02/28/2023 12:55:02 02/29/20 23 02/28/2023 T4 FREE free T4 0.91 NG/dL 0.78-2 .19 Not Available [facility] (Lab) [address] [place], [address], 02/28/2023 13:12:45 02/29/20 23 02/28/2023 TSH thyroid-stim ulating hormone 2.260 uIU/m L 0.465- 4.680 Not Available [facility] (Lab) [address] [place], [address], 02/28/2023 13:21:07 02/29/20 23 02/28/2023 PSA SCREE N PSA medicare screen 0.91 NG/mL 0.00-4 .00 Not Available [facility] (Lab) [address] [place], [address], 02/28/2023 13:21:08 02/29/20 23 02/28/2023 VITAM IN D 25-HY DROXY vd25oh 25.8 NG/mL 30-100 low Vitam in D Statu s: Defic ient: <20 ng/mL Insuf ficie nt: 20-29 ng/mL Suffi cient : 30-10 0 ng/mL Not Available [facility] (Lab) [address] [place], [address], 03/01/2023 00:36:18 12/19/[address], chest , w/o contr ast [facility] [address] [place] [address] Patien t Name: DEMARCUS HORN Access ion #: [id number] Sex: M : 1965 0 7 Locati on: RA2 Attend ing Physic faiza: ANNA SOLO Orderi ng Physic faiza: ANNA SOLO Exam Date: 022 8:55 AM Exam Name: CT CHEST WO Admitt ing Diagno sis(es ): RADIOL OGY REPORT - FINAL EXAM: CT CHEST WO HISTOR Y: nodule of lung 56-yea r-old male with right lower lobe noncal cified pulmon jennifer nodule . COMPAR LULY: None availa ble. TECHNI QUE: Helica l CT images of the chest were perfor med withou t contra st. Sagitt al and patterson l reform atted images were obtain ed. This CT exam was perfor med using one or more of the follow ing dose reduct ion techni ques: Automa melissa exposu re contro l, adjust ment of the mA and/or kV accord ing to patien t size, or use of iterat shivam recons tructi on techni que. FINDIN GS: There is a 12 mm noncal cified pulmon jennifer nodule in the right lower lobe (image Page 1 of 2 [facility] Patien t Name: DEMARCUS HORN Access ion #: [id number] Sex: M : 1965 0 7 Exam Date: 8:55 AM Exam Name: CT CHEST WO Admitt ing Diagno sis(es ): 77, series 202). No pneumo thorax , pulmon jennifer edema, pleura l effusi ons, or consol idativ e infilt rates. There is a right upper lobe calcif ied granul toby. The heart is not enlarg ed. There are extens shivam patterson ry artery calcif icatio ns. No suspic ious medias tinal or axilla ry adenop athy. No thorac ic aortic aneury sm. There is bilate ral gyneco mastia . The liver is border line diffus james fatty densit y. No fractu res are identi fied about the bony thorax . There is modera te thorac ic degene rative disc diseas e and facet arthro devonte. IMPRES LAURENT: 1. 12 mm right lower lobe noncal cified pulmon jennifer nodule . Recomm end follow -up accord ing to Fleisc hner societ y guidel jose. Recomm end compar luly with any previo us imagin g studie s to assess for stabil ity of size. 2. Patterson ry artery diseas e. 3. Gyneco mastia . 4. No acute intrat horaci c proces s is otherw ise identi fied here. Create d and electr onical ly signed by: Shahbaz jackson MD Signed Date: 10:52 AM (CT) Dictat ed by: Shahbaz jackson MD DD: 10:52 AM (CT) DT: 5/24/2 022 10:52 AM (CT) Page 2 of [address] [facility] (Imaging) [address] [place], [address], 09/25/2022 22:44:27 12/19/19 22 12/18/2021 CT, chest , w/o contr ast No observ ation record ed. MIGRATION. [facility] On [facility] Orders [address] [place], [address], 09/25/2022 22:44:27 12/22/19 22 12/18/2021 CT, chest , w/o contr ast No observ ation record ed. MIGRATION. [facility] [address], [place], [address], 09/25/2022 22:44:27 01/19/20 22 01/17/2022 compl [facility]e [facility] h[facility] ator luciano metry * No observ ation record ed. MIGRATION. Not Available 09/25/2022 22:44:27 04/10/20 22 04/10/2022 XR, chest No observ ation record ed. MIGRATION. [address] [address], [place], [address], 09/25/2022 22:44:27 04/10/20 22 04/10/2022 XR, chest No observ ation record ed. MIGRATION. [address] [address], [place], [address], 09/25/2022 22:44:27 04/10/20 22 04/10/2022 biops y, lung, ct hugh nce (PROC ) No observ ation record ed. MIGRATION. [address] [address], [place], [address], 09/25/2022 22:44:27 04/10/20 22 04/10/2022 XR, chest No observ ation record ed. MIGRATION. [address], [place], [address], 09/25/2022 22:44:27 06/28/20 22 06/28/2022 US, [facility] ardio gram No observ ation record ed. [id number] [facility] [address], [place], [address], 09/25/2022 22:44:27 07/09/20 22 06/28/2022 US, [facility] ardio gram No observ ation record ed. [id number] [facility] [address], [place], [address], 09/25/2022 22:44:27 Result Notes None recorded. Problems Name Problem SNOMED Code Status Onset Date Resolution Date Notes Provider Name and Address Organization Details Recorded Time Pain of left shoulder joint 9372723479611 9109 Active 2021 Not Available [facility] 3 22:43:20 Pain of right shoulder joint 8551289945232 9100 Active 2021 Not Available [facility] 3 22:43:20 Hyperglyce rian 49241808 Active 2021 Not Available [facility] 3 22:43:20 Nodule of lung 648546474 Active 2021 Not Available [facility] 3 22:43:20 Vitamin D deficiency 21881428 Active 2022 Not Available [facility] 3 22:43:20 Liver enzymes level above reference range 881174947 Active 2022 Not Available [facility] 3 22:43:20 Prediabete s 895484387 Active 2022 Not Available [facility] 3 22:43:20 Chronic obstructiv e pulmonary disease 16744358 Active 2022 CHANA Hernández, [facility] 3 15:12:53 Solitary nodule of lung 478382344 Active 2022 CHANA Hernández, [facility] 3 15:13:09 Malignant neoplasm of lower lobe of right lung 194690784 Active 2022 Idalia Hollingsworth MA null, [facility] 3 15:13:38 Hyperlipid emia 31530324 Active 2022 Vaughn lal MD [address], [place], [address] , [facility] [employer] [facility] 3 09:37:32 Seasonal allergy 279274237 Active 2022 Vaughn lal MD [address], [address], [place], [address] , [facility] [employer] [facility] 3 09:38:34 Skin lesion 25790668 Active 2022 Vaughn lal MD [address], [address], [place], [address] , [facility] [employer] [facility] 3 09:38:40 Hemorrhoid s 05205247 Active 2022 Vaughn lal MD [address], [address], [place], [address] , [facility] [employer] [facility] 3 09:38:51 Ptosis of eyelid 59206098 Active 2022 Vaughn lal MD [address], [address], [place], [address] , [facility] [employer] [facility] 3 09:38:55 Notes:Medical History: Rhini tis Eosinophils 110/uL IgE 4 IU/mL Alpha-1 antitrypsin PiMM 142 mg% Mild COPD RLL pulmonary nodule Obesity Gynecomastia EF 60% Mixed hyperlipidemia Bilateral shoulder pain Procedure History: Colonoscopy with hemorrhoidal banding 2017 Hemorrhoidectomy 2020 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 Procedures Surgical History Date Name Laterality Status Provider Name and Address Organization Details Recorded Time 022 BIOPSY, LUNG, CT GUIDED (SURG) completed Not Available [facility] 09/25/2022 22:44:16 Hemorrhoidectomy completed Not Available [facility] 09/25/2022 22:42:41 Eye completed Not Available [facility] 09/25/2022 22:42:41 Cardiac Cath completed Not Available [facility] 09/25/2022 22:42:41 Colonoscopy completed Not Available [facility] 09/25/2022 22:42:41 Hemorrhoidectomy completed Not Available [facility] 09/25/2022 22:42:41 Orthopedic Surgery completed Not Available [facility] 09/25/2022 22:42:41 Imaging Results None recorded. Procedure Notes None recorded. Medical Equipment None Reported. Allergies Allergen ID Allergen Name Allergen Category Reaction Reaction Severity Criticality Documentation Date Start Date Code Code System Note Provider Name and Address Organization Details Recorded Time 79093 latex environme nt,medica tion rash Not available Not available 09/25/2022 68074 91 RxNorm Not Available [facility] 22:44:10 Medications Name Sig Start Date Stop Date Status Note LastModified by Organization Details LastModified Time atorvastati n 40 mg tablet TAKE 1 TABLET BY MOUTH ONCE DAILY active Not Available Not Available No t Available metformin 500 mg tablet Take 1 tablet twice a day by oral route. 02/10 completed pt did not take Not Available Not Available Not Available lidocaine HCl 2 % mucosal jelly APPLY GEL TO RECTUM ONCE DAILY NEEDED 04/09 completed Not Available Not Available Not Available meloxicam 7.5 mg tablet Take 1 tablet twice a day by oral route as needed for 15 days. active Not Available Not Available No t Available erythromyci n 5 mg/gram (0.5 %) eye ointment 09/17 completed Not Available Not Available Not Available ergocalcife rol (vitamin D2) 1,250 mcg (50,000 unit) capsule TAKE 1 CAPSULE BY MOUTH ONCE A WEEK FOR 8 WEEKS active Not Available Not Available No t Available albuterol sulfate HFA 90 mcg/actuati on aerosol inhaler Inhale 1 puff every 4 hours by inhalatio n route as needed. 02/10 completed Not Available Not Available Not Available rosuvastati n 40 mg tablet TAKE 1 TABLET BY MOUTH ONCE DAILY 02/10 completed pt did not take Not Available Not Available Not Available Xyzal 5 mg tablet Take 1 tablet every day by oral route as needed. 2020 active Not Available Not Available Not Avai lable Procto-Med HC 2.5 % topical cream perineal applicator APPLY A THIN LAYER TO THE AFFECTED AREA(S) TOPICALLY 2 4 TIMES DAILY. 04/09 completed Not Available Not Available Not Available Vitals Date Recorded Body mass index (BMI) Body height Oxygen saturation Oxygen saturation in Arterial blood by Pulse oximetry Heart rate Body temperature Body weight Systolic And Diastolic Provider Name and Address Organization Details Last Updated DateTime 2 31.1 kg/m2 185.42 cm 97 % 97 % 64 /min 97.2 [degF] 075246. 8 g 124/60 mm[Hg] Not Available [facility] 3 22:43:12 Date Recorded Body mass index (BMI) Body height Oxygen saturation Oxygen saturation in Arterial blood by Pulse oximetry Heart rate Body temperature Body weight Systolic And Diastolic Provider Name and Address Organization Details Last Updated DateTime 2 31.3 kg/m2 185.42 cm 98 % 98 % 48 /min 97.7 [degF] 061879. 39 g 128/70 mm[Hg] Not Available [facility] 3 22:43:12 Date Recorded Body height Body mass index (BMI) Body weight Body temperature Heart rate Systolic And Diastolic Provider Name and Address Organization Details Last Updated DateTime 3 190.5 cm 28.4 kg/m2 605571. 47 g 97.9 [degF] 72 /min 112/66 mm[Hg] SHEBA Sabillon - S ND [employer] [facility] 3 11:10:11 Date Recorded Body mass index (BMI) Heart rate Body height Oxygen saturation Oxygen saturation in Arterial blood by Pulse oximetry Heart rate Respiratory rate Body temperature Body weight Systolic And Diastolic Provider Name and Address Organization Details Last Updated DateTime 2 30.8 kg/m2 50 /min 185.42 cm 97 % 97 % 50 /min 15 /min 97.7 [degF] 816284. 9 g 110/70 mm[Hg] Not Available [facility] 3 22:43:12 Date Recorded Body mass index (BMI) Body height Heart rate Body temperature Body weight Systolic And Diastolic Provider Name and Address Organization Details Last Updated DateTime 2 29.6 kg/m2 190.5 cm 60 /min 97.4 [degF] 147717. 39 g 130/60 mm[Hg] Not Available [facility] 3 22:43:12 Social History Question Answer Notes LastModified by Organizat ion Details LastModified Time Tobacco Smoking Status Never Smoker Not Available [facility] 09/25/2022 22:42:36 Do You Have An Advance Directive? No [id number] Information not available 09/25/2022 What Is Your Level Of Caffeine Consumption? Moderate [id number] Information not available 09/25/2022 How Much Tobacco Do You Chew? None [id number] Information not available 09/25/2022 In The 14 Days Before Symptom Onset, Have You Had Close Contact With A Laboratory-confir med COVID-19 While That Case Was Ill? No MIGRATION.[id number] Information not available 09/25/2022 In The 14 Days Before Symptom Onset, Have You Had Close Contact With A Person Who Is Under Investigation For COVID-19 While That Person Was Ill? No MIGRATION.39869 [id number] Information not available 09/25/2022 What Type Of Diet Are You Following? REGULAR MIGRATION.90547 26727 Information not available 09/25/2022 Which Illicit Or Recreational Drugs Have You Used? None MIGRATION.50559 10866 Information not available 09/25/2022 Have There Been Any Changes To Your Family Or Social Situation? No MIGRATION.86972 91605 Information not available 09/25/2022 What Is The Fluoride Status Of Your Home? Unknown MIGRATION.67046 55006 Information not available 09/25/2022 Are There Any Guns Present In Your Home? No MIGRATION.83289 62868 Information not available 09/25/2022 Do You Use Insect Repellent Routinely? No MIGRATION.92379 73007 Information not available 09/25/2022 Where Do You Live? [place]House MIGRATION.78405 74211 Information not available 09/25/2022 Do You Have A Medical Power Of Doctor Of Pharmacy? No MIGRATION.65649 37277 Information not available 09/25/2022 What Was The Date Of Your Most Recent Tobacco Screening? 02/10/2023 [email or web address] Information not available 02/10/2023 Have You Ever Been Counseled For Unhealthy Alcohol Use? No MIGRATION.20516 33977 Information not available 09/25/2022 Do You Have Any Pets? No MIGRATION.76213 47465 Information not available 09/25/2022 What Is Your Relationship Status? MIGRATION.81469 64932 Information not available 09/25/2022 Do You Use Your Seat Belt Or Car Seat Routinely? Yes MIGRATION.15746 51553 Information not available 09/25/2022 Do You Have Smoke And Carbon Monoxide Detectors In Your Home? Yes MIGRATION.91210 29892 Information not available 09/25/2022 Are You Passively Exposed To Smoke? No MIGRATION.51057 13163 Information not available 09/25/2022 Are There Any Smokers In Your House? No MIGRATION.76852 22319 Information not available 09/25/2022 How Much Tobacco Do You Smoke? No MIGRATION.57801 89763 Information not available 09/25/2022 Do You Use Sunscreen Routinely? Yes MIGRATION.56492 42096 Information not available 09/25/2022 Has Tobacco Cessation Counseling Been Provided? No N/A MIGRATION.09686 88880 Information not available 09/25/2022 How Many Years Have You Smoked Tobacco? 0 MIGRATION.11806 37977 Information not available 09/25/2022 Have You Recently Traveled Abroad? No MIGRATION.85554 60461 Information not available 09/25/2022 Do You Have Any Dietary Restrictions? No MIGRATION.90210 13382 Information not available 09/25/2022 Sex: Male Functional Status Question Answer Note LastModified by Organizat ion Details LastModified Time Do you use any illicit or recreational drugs? No MIGRATION.959521 9190 Information not available 09/25/2022 Do you or have you ever used any other forms of tobacco or nicotine? No MIGRATION.990785 7146 Information not available 09/25/2022 What is your level of alcohol consumption? Moderate weekends MIGRATION.229806 3712 Information not available 09/25/2022 Do you or have you ever used smokeless tobacco? Never used smokeless tobacco MIGRATION.373780 2644 Information not available 09/25/2022 What is your occupation? under [email or web address] MIGRATION.910661 6179 Information not available 09/25/2022 Do you or have you ever used e-cigarettes or vape? Never used electronic cigarettes MIGRATION.549779 3734 Information not available 09/25/2022 What is your exercise level? Occasional MIGRATION.612303 8190 Information not available 09/25/2022 Mental Status Question Answer Note LastModified by Organizat ion Details LastModified Time Do you feel stressed (tense, restless, nervous, or anxious, or unable to sleep at night)? [id number] MIGRATION.[id number] Information not available 09/25/2022 Family History Relationship Description Onset Age of this Age Resolved Age Notes LastModified by Organization Details LastModified Time Father Heart disease MIGRATION.203 [id number] Not available 09/25/2022 22:42:44 Father Family history of stroke MIGRATION.214 [id number] Not available 09/25/2022 22:42:44 Mother Gallstone MIGRATION.039 [id number] Not available 09/25/2022 22:42:44 Brother Hodgkin's disease (clinical) MIGRATION.307 [id number] Not available 09/25/2022 22:42:44 Sister Kidney disease 13 MIGRATION.422 [id number] Not available 09/25/2022 22:42:44 Medical History Condition Response NERVE DISEASE N BLINDNESS N RHEUMATIC FEVER N KIDNEY STONES N BLADDER PROBLEMS N MRSA N OTHER # 1 N POLIO N LUNG DISEASE/DISORDER Y RADIATION / CHEMOTHERAPY N COPD N Other # 2 N ANKLE PAIN N BLOOD DISEASES N EAR OR HEARING PROBLEMS N MUMPS Y DEPRESSION (INCLUDING POST ) N BOWEL PROBLEMS Y STROKE/TIA N ULCERS N BENIGN PROSTATIC HYPERPLASIA N MEASLES Y HYPOTENSION N MYOCARDIAL INFARCTION N OBESITY N GERD/NAUSEA N ANEURYSM N URINARY/BLADDER/KIDNEY PROBLEMS N CORONARY ARTERY DISEASE (CAD) N ADDICTION CONCERNS N Impotence N ENDOMETRIOSIS N USE OF BLOOD THINNERS N SKIN PROBLEMS N GASTROINTESTINAL DISORDER N PERIPHERAL VASCULAR DISEASE N MUSCLE,JOINT OR BONE PROBLEMS Y GASTROINTESTINAL BLEEDING Y BLOOD CLOTS N ASTHMA N CATARACTS N ERECTILE DYSFUNCTION N VARICOSITIES N GI PROBLEMS N Low Testosterone N INFERTILITY N AIDS/HIV N CHEMOTHERAPY / RADIATION N LIVER DISEASE N MALE HYPOGONADISM N HYPERTENSION N Deficiency N TOURETTE'S N ANXIETY DISORDER N BLOOD TRANSFUSION N ANEMIA/BLOOD DISORDER N CHRONIC EAR INFECTIONS N BRONCHITIS N TUBERCULOSIS N GLAUCOMA N FOOT PROBLEM N HEART VALVE DISORDERS N DIVERTICULITIS N SLEEP APNEA N CHICKENPOX Y INFECTIOUS DISEASE N PROSTATE N HEART ARRHYTHMIA N INSOMNIA N HIGH CHOLESTEROL / HYPERLIPIDEMIA N HYPERTHYROIDISM N EYE PROBLEMS Y EDEMA N CHRONIC PAIN SYNDROME N HYPOTHYROIDISM N CONSTIPATION N CAROTID BLOCKAGE N BACK / NECK PROBLEMS N ATHEROSCLEROSIS N BREAST PROBLEMS N HERNIATED DISC N DIALYSIS N ECZEMA N OSTEOPOROSIS N ARTHRITIS N APPENDICITIS N DIABETES, TYPE N BAD TEETH N ENT N HEARTBURN / REFLUX N AUTISM SPECTRUM DISORDER (ASD) N HEPATITIS / LIVER DISEASE N GOUT N SLEEP DISORDER N ALZHEIMER'S DISEASE N Brain Problems N HERPES N DEMENTIA N SEIZURES/EPILEPSY N HEADACHES/MIGRAINES N VASCULAR DISEASE N PACEMAKER N Blood Disorder N DIZZINESS N HEAD TRAUMA OR INJURY N KIDNEY DISEASE N HEART DISEASE/HEART PROBLEMS N MULTIPLE SCLEROSIS N CARDIAC ARRHYTHMIA N CANCER: SPECIFY N ANESTHESIA COMPLICATIONS N Gall Stones N ATRIAL FIBRILLATION N PULMONARY EMBOLISM N AUTOIMMUNE DISEASE N Immunizations Vaccine Type Date Status Note Provider Nam e and Address Organization Details Recorded Time COVID-19, mRNA, LNP-S, PF, 30 mcg/0.3 mL dose 2 completed Not Available [facility] 09/25/2022 22:44:08 SARS-COV-2 (COVID-19) vaccine, UNSPECIFIED 1 completed Not Available [facility] 09/25/2022 22:44:08 SARS-COV-2 (COVID-19) vaccine, UNSPECIFIED 1 completed Not Available [facility] 09/25/2022 22:44:08 COVID-19, mRNA, LNP-S, PF, 30 mcg/0.3 mL dose 1 completed Not Available [facility] 09/25/2022 22:44:08 Influenza, split virus, quadrivalent, PF 2 completed Not Available [facility] 09/25/2022 22:44:09 Influenza, split virus, quadrivalent, PF 2 completed Not Available [facility] 09/25/2022 22:44:09 Tdap 1 completed Not Available [facility] 09/25/2022 22:44:09 Past Encounters Encounter ID Performer Location Encounter Start Date Encounter Closed Date Diagnosis/Indication Diagnosis SNOMED-CT Code Diagnosis ICD10 Code Diagnosis IMO Codes Diagnosis Note [id number] Vaughn lal MD [facility] Internal [facility] [place] [address] [facility] [place] [address] 11/27/2020 00:00:00 11/27/2020 15:06:[id number] [facility] General Surgery 4 [facility], [address] [address] 12/12/2020 00:00:00 12/12/2020 15:39:06 [id number] Jimy [address] [facility] General Surgery 4 [facility], [address] [address] 01/18/2021 00:00:00 01/18/2021 12:19:16 [id number] [address] l[address] [facility] Internal Med [place] [address] [facility] [place] [address] 04/09/2021 00:00:00 04/09/2021 14:35:21 [id number] [address] lal MD [facility] Internal Med [place] [address] [place] [address] [place] [address] 08/13/2021 00:00:00 09/18/2021 10:05:[id number] [facility] Ortho [place] [facility] [address] [place] [address] 09/17/2021 00:00:00 09/17/2021 16:16:08 [id number] Vaughn lal MD [facility] Internal [place] [address] [place] [address] [place] [address] 12/10/2021 00:00:00 12/10/2021 15:32:54 [id number] Yousuf Covarrubias MD [facility] Pulmonolo gy [address], [address] [address] 01/01/2022 00:00:00 01/01/2022 16:15:[id number] [facility] [address] [address] 02/04/2022 00:00:00 02/04/2022 12:48:47 [id number] [address] [facility] [address] [address] 05/06/2022 00:00:00 05/06/2022 10:59:21 [id number] l[address] [facility] Internal Med [place] [address] [place] [address] [place] [address] 06/17/2022 00:00:00 06/17/2022 10:10:13 [id number] l[address] [facility] Internal Med [place] [address] [place] [address] [place] [address] 02/10/2023 11:00:42 02/10/2023 11:52:26 Screening - NAD [id number] Z13.9 C-scope: 01/07/2017 , Dr Mark, next in 10 years Get flu shotUTD Tdap 11/27/2020 UTD on COVID 19 vaccine RTC in 6 monthsDo labsER if worseHe did verbalize his understand ing of the above Hyperlipidemia 65068852 E78.5 Very strong family history of CAD in father and grandfathe r S/p CC 05/04/2021 On rosuvastat in 40mg dailyGet labsKeep apt with Dr Middleton, states that he has an apt today 06/17/2022 OV 02/10/2023 : Now not taking the rosuvastat in, states that he is very active and wants to check his labs, he has been renovating his basement for his daughter Nodule of lung [id number] R91.1 S/p PET CT 04/03/2021 : HV done d/t nodule seen on CT coronary ca scoreGet another CT chest in 09/2021 S/p PFT 01/17/2022 : Mild obstructiv e lung disease S/p lung bx 04/10/2022 , Dr Covarrubias 05/06/2022 Vitamin D deficiency 347 27624 E55.9 Seasonal allergy 6445683 04 J30.2 On Xyzal as needed Skin lesion 98947030 L98 .9 Noted on the R mid back, flat red non tender lesion, about 1/2 inch in diameter Has seen Dr Cole's INTAKE COUNSELOR as per his history, does well now was told to come in every year Hemorrhoids 15199870 K64 .9 Did see G SurgeryDoe s well now 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 See eye MD in [facility] for surgery now as per his history Pain of ri ght shoulder joint [id number] 5578035 M25.511 Xr shoulder 04/09/2021 09/17/2021 : Melvin GATES told to do PT Screening for malignant neoplasm of prostate 084911800 Z12.5 Health Concerns Section Related Observation LastModified by Organization Detai ls LastModified Time None Recorded Concern Status LastModified by Organization Details LastModified Time None Recorded Advance Directives Directive N: Payers Insurance Date Sequence Insurance Name Policy Number Policy Uriarte Covered Member ID Uriarte Member ID Guarantor Name 02/07/2023 1 [place] [id number] R Demarcus Aguilar [id number] Demarcus Aguilar Notes Date Note Type Note Provider Name and Address Organization Details Recorded Time 02/10/2023 text/html OV 11/27/2020:Here to establish carePast Hx:HLDPtosis of the R eye lid Reviewed social family and surgical historyHe is doing wellHe would like to see an eye MD as his ptosis is getting worseHe would also like to see a teacher education director and also get his hhoids checked out with a surgeonHe has not done labs for the past 3 yearsOV 04/09/2021:Here for his f/u aptHe is doing wellHe did see Dr Shay did do the labs on 04/06/2021He does c/o R shoulder pain, not severe but unable to IR his shoulder, no N/T, no acute traumaOV 08/13/2020:Here for his routine aptHe feels wellHe has no new labsOV 12/10/2021:Here for his routine aptHe is doing very wellNo recent labs notedOV 06/17/2022:Here for his f/u apt, he is doing well, no recent labs noted, is doing very well OV 02/10/2023:Here for his routine apt, he feels well today, no new labs noted since 06/28/2022, states that he has lost weight and is now very active and has felt the best in his life Vaughn Lindsay MD [address], [facility] [address], [place], [address], [place] [facility] 02/10/2023 11:41:12
--- OUTSIDE RECORDS SUMMARY | 2025-05-20 07:05 | XMS_ITS | Clinical Summary ---
Author Organization [facility] Address [address] [place] [address] Care Team Providers Care Auto Accessories Installer Name Role Phone Vaughn Lindsay MD Primary Care Provider Falguni Doherty MD Unavailable [phone] Turner Cole MD Unavailable Eri Comer MD Unavailable Inez Malhotra OD Unavailable [phone] Source Comments [facility],non-owned Affiliates and Associated Physician Practices is amultiple site organization consisting of ambulatory clinics and hospital sitesin [place], [place], [place] and [place]. This disclosure is being madepursuant to the Care Everywhere program and may not contain all information available regarding this patient. Last updated 18.[facility] Allergies Active Allergy Reactions Criticality Noted Date Comments Latex Itching 04/18/2021 Penicillins Urticaria Medium 04/18/2021 Medications * Be aware that medications may not be up to date on this document. Alwaysverify current medications with the patient. 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 (AF LURIA, FLUZONE TRIVALENT; 6MO+) (IIV3) 05/20/2005 Covid Pfizer primary monoval ent 12+ yr 0.3mL Purple cap 11/17/2020,10/26/2020 TDAP (7yrs+) 11/27/2020 Family History Medical History Relation Name Comments Hodgkin's lymphoma Brother CAD (Coronary Artery Disease) Father CAD (Coronary Artery Disease) Paternal Grandfather Relation Name Status Comments Brother Father Paternal Grandfather Social History Tobacco Use Types Packs/Day Years Used Date Smoking Tobacco: Never Smokeless Tobacco: Never Alcohol Use Standard Drinks/Week Comments Yes 0 (1 standard drink = 0.6 oz pur e alcohol) Socially Sex and Gender Information Value Date Recorded Sex Assigned at Not on file Legal Sex Male 3:31 PM CDT Gender Identity Not on file Sexual Orientation Not on file Last Filed Vital Signs Vital Sign Reading Time Taken Comments Blood Pressure 132/65 05/07/2021 12:50 PM CDT Pulse 57 05/07/2021 1:05 PM CDT Temperature 36.2 C (97.1 F) 05/07/2021 1:05 PM CDT Respiratory Rate 16 05/07/2021 1:05 PM CDT Oxygen Saturation 97% 05/07/2021 12:50 PM CDT Inhaled Oxygen Concentration - - Weight 104.1 kg (229 lb 8 oz) 05/07/2021 10:02 A M CDT Height 190.5 cm (6' 3) 05/07/2021 10:02 AM CDT Body Mass Index 28.69 05/07/2021 10:02 AM CDT Plan of Treatment Health Maintenance Due Date Last Done Comments COLOGUARD (AGES 45-75) - COL ON CA SCREENING 1963 COLON MONITORING 1963 COLONOSCOPY - COLON CA SCREENING 1963 CT COLONOGRAPHY - COLON CA SCREENING 1963 Colorectal Cancer Screening 1963 FIT - COLON CA SCREENING 1963 FLEX SIG - COLON CA SCREENING 1963 HIV SCREENING 10/12/1978 HEPATITIS C SCREENING 10/08/1981 PNEUMOCOCCAL VACCINE 50+ (1 of 1 - PCV) 10/12/2013 ZOSTER VACCINE (1 of 2) 10/12/2013 SCREENING FOR DIABETES 05/14/2021 DEPRESSION SCREENING 07/28/2024 COVID-19 VACCINE (3 - 2024-2 6 season) 2025 11/17/2020, 10/26/2020 INFLUENZA VACCINE (#1) 2025 05/20/2005 DTAP/TDAP/TD VACCINES (2 - T d or Tdap) 11/27/2030 11/27/2020 Respiratory Syncytial Virus (RSV) Vaccine Pt: or over 60 yrs (1 - 1-dose 75+ series) 10/12/2038 HEPATITIS B VACCINE Aged Out No longe r eligible based on patient's age to complete this topic HIB VACCINE Aged Out No longer eligi ble based on patient's age to complete this topic HPV VACCINE Aged Out No longer eligi ble based on patient's age to complete this topic MENINGOCOCCAL (Group B) VACCINE SHARED DECISION-MAKING Aged Out No longer eligible based on patient's age to complete this topic MENINGOCOCCAL GROUPS A/C/Y/W VACCINE Aged Out No longer eligible b ased on patient's age to complete this topic Insurance [place] [address] , [place] [address] [employer] Care Teams Auto Accessories Installer Relationship Specialty Start Date End Date Vaughn Lindsay MD [address] [facility] [address] [place] [address] PCP - General 04/18/21 Falguni Dohetry MD [address] [facility] [place] [phone] Ophthalmology 04/18/21 Turner Cole MD [address] [place] [address] Dermatology 04/18/21 Eri Comer MD [address] [place] [address] Cardiovascular Disease 04/18/21 Inez Malhotra OD [address] [place] [address] Research Associate Quality Control Qc 07/09/21
[2025-05-20 08:11] LABS: Hematocrit 44.9 % (42.0-52.0); Hemoglobin 14.5 g/dL (14.0-18.0); Immature Granulocyte Percent A 0.1 % (0-0.5); Lymphocytes Absolute Auto 3.22 K/mm3 (0.9-3.2); Mean Corpuscular HGB Conc 32.3 g/dl (32-36); Mean Corpuscular Hemoglobin 30.3 pg (26-34); Mean Corpuscular Volume 93.7 fl (80-100); Nucleated Red Blood Cells Absolute Auto 0.000 K/mm3 (0.0-0.012); Nucleated Red Blood Cells Perc 0.0 % (0.0-0.2); Platelet Count Result 181 k/mm3 (150-375); Red Blood Count 4.79 M/mm3 (4.6-6.20); White Blood Count 7.0 K/mm3 (4.5-10.0)
[2025-05-20 08:37] LABS: Alanine Aminotransferase 73 U/L (6-50); Albumin Level 4.3 g/dL (3.5-5.1); Alkaline Phosphatase 62 U/L (38-126); Anion Gap 7 mmol/L (4-12); Aspartate Amino Transferase 44 U/L (17-59); Bilirubin,Total 0.8 mg/dL (0.2-1.3); Blood Urea Nitrogen 13 mg/dL (9-20); Calcium 9.0 mg/dL (8.4-10.2); Carbon Dioxide 30 mmol/L (22-30); Chloride 100 mmol/L (98-107); Cholesterol 223 mg/dL (0-200); Estimated Glomerular Filt Rate > 60; Glucose 131 mg/dL (65-110); HDL Direct 36 mg/dL; Potassium 4.9 mmol/L (3.4-5.0); Sodium 137 mmol/L (137-145); Total Protein 7.4 g/dL (6.3-8.2); Triglycerides 277 mg/dL (<150)
[2025-05-20 09:28] LABS: Prostate Specific Antigen 2.4 ng/mL (< OR = 4.0)
== END 2025-05-20 07:03 | disposition home or self-care (01) ==
LOC: ANHLAB 07:03
PROVIDERS: PCP Family Medicine; Visit Provider Family Medicine
DX: Z12.5 Encounter for screening for malignant neoplasm of prostate (principal); Z00.00 Encounter for general adult medical examination without abnormal findings; E78.5 Hyperlipidemia, unspecified
CPT/HCPCS: 36415; 80053; 80061; 82172; 84153; 85025; G0103